=== PATIENT | male | born 1990 | race Caucasian/White ===

== ENCOUNTER 2022-04-12 07:52 | Outpatient (CLI) | payer OTHER, SELFPAY ==
[2022-04-12 13:51] LABS: Albumin* 4.4 g/dL (3.3-5.0); Chloride* 101 mmol/L (96-114)
[2022-04-12 13:52] LABS: Potassium* 3.9 mmol/L (3.6-5.1); Sodium* 139 mmol/L (135-149)
[2022-04-12 13:54] LABS: Aspartate Amino Transferase* 39 U/L (12-35); Bilirubin Total* 0.7 mg/dL (0.1-1.5); Blood Urea Nitrogen* 21 mg/dL (5-24); Carbon Dioxide* 28 mmol/L (20-32); Estimated Glomerular Filt Rate 102 ml/min; Total Protein* 6.7 g/dL (6.0-8.3)
[2022-04-12 13:55] LABS: Alanine Aminotransferase* 36 U/L (4-50); Alkaline Phosphatase* 97 U/L (40-150); Calcium* 9.3 mg/dL (8.4-10.6); Glucose* 89 mg/dL (60-115); Uric Acid* 4.1 mg/dL (2.2-8.4)
== END 2022-04-12 07:53 | disposition home or self-care (01) ==
PROVIDERS: PCP Physician Assistant Medical; Visit Provider Family Medicine
DX: K50.919 Crohn's disease, unspecified, with unspecified complications (principal); R21 Rash and other nonspecific skin eruption; R53.83 Other fatigue
CPT/HCPCS: 80053; 84443; 84550